=== PATIENT | male | born 1955 | race Hispanic/Latino ===

== ENCOUNTER 2017-05-23 14:39 | Outpatient (CLI) | payer OTHER ==
--- NOTE | 2017-05-23 15:04 | RAD ---
CERVICAL SPINE RADIOGRAPHS 3 VIEWS: Date: 05/23/17 CLINICAL HISTORY: Neck pain. FINDINGS: There is mild retrolisthesis of C3 on C4. Grade I spondylolisthesis of C4 on C5 present. There is rev ersal of normal cervical lordosis. Mild to moderate multilevel degenerative change of the cervical sp ine present. The dense is partially obscured by overlying skull base. Lateral masses of C1 are approp riately aligned. IMPRESSION: Degenerative changes of the cervical spine as above. There is no acute fracture identified, within li mitations. POS: VIANNEY
== END 2017-05-23 14:40 | disposition home or self-care (01) ==
LOC: RAD 14:39
PROVIDERS: ATTEND Specialist
DX: M50.30 Other cervical disc degeneration, unspecified cervical region (principal); M47.892 Other spondylosis, cervical region
CPT/HCPCS: 72040

== ENCOUNTER 2017-09-26 10:06 | Outpatient (CLI) | payer OTHER ==
[2017-09-26] MEDS ORDERED: Lidocaine 1% PF 10 ML AMP ONE (10:25)
[2017-09-26] MEDS ORDERED: EPINEPHrine 1 MG/ML AMP ONE (10:25)
[2017-09-26] MEDS ORDERED: Gadobenate Dimeglumine 529 MG/1 ML (20ML VIAL) ONE (10:25)
[2017-09-26] MEDS ORDERED: Iopamidol 300 61% 50 ML VIAL FS ONE (10:25)
--- NOTE | 2017-09-26 14:21 | RAD ---
FLUOROSCOPIC GUIDED RIGHT SHOULDER ATHROGRAM: Date: 09-26-17 History: Rotator cuff tear. Right shoulder pain. Fluoroscopy: Total fluoroscopy time is 0.8 minutes with total dose of 2.811 mGy*cm^2. Technique: Procedure, including risks and complications were explained to the patient and informed consent was o btained. The patient was placed on the fluoroscopy table in supine position. The right shoulder was p laced in external rotation. An area overlying the superior aspect of the right glenohumeral joint was marked and then meticulousl y prepped and draped in the usual sterile fashion. Skin and subcutaneous tissues were infiltrated wit h buffered 1% Lidocaine for local anesthesia. Utilizing fluoroscopic guidance, a 22 gauge spinal needle was advanced into the right glenohumeral héctor int. Inter stylet was removed and a small amount of contrast was injected to confirm placement in the right glenohumeral joint. As a result approximately 4 mm of a mixture consisting of MultiHance, omni paque 300, Lidocaine, and a small amount of epinephrine was instilled into the right glenohumeral angelic nt. Needle was removed and hemostasis was achieved with direct pressure and dry sterile dressing was placed. Patient tolerated the procedure well and without immediate complication. Patient was transpor mikala to MRI for further imaging. IMPRESSION: 1. Technically successful right shoulder arthrogram. Refer to MRI right shoulder report for further d etails. 2. Three views of the right shoulder demonstrate right acromioclavicular joint osteoarthritis. No acu te osseous abnormality is seen. POS: ARTUR
--- NOTE | 2017-09-26 15:08 | MRI ---
RIGHT SHOULDER MRI POST ARTHROGRAM CONTRAST: History: 61-year-old male with history of right shoulder pain and rotator cuff tear. Technique: Multiplanar, multisequence MR examination of the right shoulder is performed. FINDINGS: There is full thickness minimally retracted tear of the supraspinatus tendon which is considerably at tenuated with a component of high grade partial thickness under surface tearing back to the level of the rotator cable as well as some associated delamination of the supraspinatus and infraspinatus tend ons. Fluid and contrast extends into the subacromial subdeltoid bursa. There are AC joint arthrosis c hanges with some undersurface osteophytic change of the distal clavicle as well as some down sloping of the lateral acromion. Subscapularis and biceps tendons appear intact. There is evidence of a nancy l tear involving the posterior superior labrum. Examination is limited because of fairly extensive mo tion artifact. IMPRESSION: Rotator cuff tears including the supraspinatus and infraspinatus tendons. Mild muscle volume loss of the supraspinatus muscle. Irregular poorly defined posterior superior labrum, evidence for a tear of the posterior superior labrum. POS: VIANNEY
== END 2017-09-26 10:07 | disposition home or self-care (01) ==
LOC: RAD 10:06
PROVIDERS: ATTEND Orthopaedic Surgery
DX: M75.101 Unspecified rotator cuff tear or rupture of right shoulder, not specified as traumatic (principal); M19.011 Primary osteoarthritis, right shoulder
CPT/HCPCS: 23350; A9579; J0171; J7050

== ENCOUNTER 2017-11-13 14:07 | Outpatient (CLI) | payer OTHER ==
[2017-11-13 15:06] LABS: Anion Gap 13 mmol/L (10-20); BUN (Urea Nitrogen) 17 mg/dL (8.4-25.7); Calc. Creatinine Clearance 0 mL/min (70-130); Calcium 9.3 mg/dL (7.8-10.44); Carbon Dioxide 21 mmol/L (23-31); Chloride 106 mmol/L (98-107); Estimated GFR-MDRD 79; Glucose 111 mg/dL (80-115); Potassium 3.8 mmol/L (3.5-5.1); Sodium 136 mmol/L (136-145)
[2017-11-13 15:07] LABS: Eosinophils 2 % (0-10); Lymphocytes 70 % (21-51); MDiff Complete? YES; Mean Corpuscular HGB CONC 34.3 g/dL (32.0-36.0); Mean Corpuscular Hemoglobin 31.5 pg (27.0-31.0); Mean Corpuscular Volume 91.7 fL (78.0-98.0); Mean Platelet Volume 6.5 fL (7.4-10.4); Monocytes 3 % (0-10); Neutrophil 25 % (42-75); PLT Morphology Comment Appears Adequate; Platelet Count 249 thou/uL (130-400); RBC Distribution Width 12.7 % (11.5-14.5); Red Blood Cell (RBC) Count 4.44 mill/uL (4.70-6.10); White Blood Cell (WBC) Count 7.6 thou/uL (4.8-10.8)
--- NOTE | 2017-11-14 15:23 | EKG ---
Test Reason : Blood Pressure : / mmHG Vent. Rate : 064 BPM Atrial Rate : 064 BPM P-R Int : 138 ms QRS Dur : 076 ms QT Int : 414 ms P-R-T Axes : 032 053 026 degrees QTc Int : 427 ms Normal sinus rhythm Normal ECG Confirmed by CARLEY ANTONIO ([id number]) on 11/14/2017 3:23:23 PM Referred By: IERO Confirmed By:CARLEY ANTONIO
== END 2017-11-13 14:08 | disposition home or self-care (01) ==
LOC: LABBT 14:07
PROVIDERS: ATTEND Orthopaedic Surgery
DX: Z01.818 Encounter for other preprocedural examination (principal); M75.101 Unspecified rotator cuff tear or rupture of right shoulder, not specified as traumatic
CPT/HCPCS: 80048; 85025; 93005; 93010

== ENCOUNTER 2017-11-16 10:33 | Day surgery (SDC) | payer OTHER ==
[2017-11-13 14:38] VITALS: BMI 24.9
[2017-11-16] MEDS ORDERED: Midazolam HCl 2 mg/2 ml Vial ONE (10:54)
[2017-11-16] MEDS ORDERED: Fentanyl 100 MCG/2 ML VIAL ONE (10:54)
[2017-11-16] MEDS ORDERED: CEFAZOLIN/Water 2 GM/20 ML SYRINGE ONE (10:57)
[2017-11-16] MEDS ORDERED: Bupivacaine HCl 0.25%/Epi 0.0005/PF 10 ML VIAL FS ONE (11:14)
[2017-11-16] MEDS ORDERED: traMADol HCl 50 MG TAB PO PRN ×2 (11:58)
[2017-11-16] MEDS ORDERED: HYDROcodone/Acetaminophen 5/325 mg Tablet PO PRN ×2 (11:58)
[2017-11-16] MEDS ORDERED: Promethazine HCl 25 MG/ML VIAL IM PRN (11:58)
[2017-11-16] MEDS ORDERED: Ondansetron HCl/PF 4 MG/2 ML Vial IVP PRN (11:58)
[2017-11-16] MEDS ORDERED: Ropivacaine HCl/PF 1,100 MG in Sodium Chloride 0.9% 440 ML NERVE BLCK SCH (11:58)
[2017-11-16] MEDS ORDERED: Zolpidem Tartrate 5 MG TAB PO PRN (11:58)
[2017-11-16] MEDS ORDERED: Fentanyl 100 MCG/2 ML VIAL IV PRN (11:59)
[2017-11-16] MEDS ORDERED: Promethazine HCl 25 MG/ML VIAL ONE (15:18)
--- NOTE | 2017-11-17 10:05 | OP ---
DATE OF PROCEDURE: 11/16/2017 PREOPERATIVE DIAGNOSES: Right shoulder impingement, rotator cuff tear, biceps tendon tear, and some acromioclavicular joint arthritis. POSTOPERATIVE DIAGNOSES: Right shoulder impingement, rotator cuff tear, biceps tendon tear, and some acromioclavicular joint arthritis. PROCEDURES PERFORMED: 1. Right shoulder arthroscopy with subacromial decompression. 2. Arthroscopic rotator cuff repair. 3. Open biceps tenodesis. 4. Open distal clavicle excision. SURGEON: Melvin Cosme M.D. ASSISTANT STORE LEADER: Ruben Ash PA-C. BLOOD LOSS: Approximately 50 mL. COMPLICATIONS: None. ANESTHESIA: He had general anesthetic. He also had a preoperative block. IMPLANTS: To the right shoulder included a triple-loaded titanium anchor. We also used a BioComposi te 4.75 mm SwiveLock and a 7 x 23 BioComposite Bio-Tenodesis screw. These were all Arthrex devices. COMPLICATIONS: There were no complications. INDICATIONS: Ant is very active right-hand dominant 61-year-old male, who works at the hospital in the operating room. He has failed nonoperative treatment for his right shoulder rotator cuff tear, a nd at this time, opted to have surgery. DESCRIPTION OF PROCEDURE: After all appropriate consent forms were explained and signed, he was take n back to the operating room and at this time was given general anesthetic. He was rolled into the l eft lateral decubitus position with all bony prominences well-padded. An Exparel was placed beneath the left axilla. The right arm was taken through full range of motion. Irizarry bag was inflated to hol d him in this position and all bony prominences were protected. The right arm was then hung up with 15 pounds of traction in standard fashion. The right shoulder and upper extremity were then prepped and draped in the standard surgical fashion. Bony anatomic landmarks were drawn out and the subacrom ial space was infiltrated with Marcaine with epinephrine. Posterior portal was established and the s cope was placed into the shoulder joint. Anterior working portal was then made using a needle locali zation technique. Diagnostic arthroscopy commenced in the glenohumeral joint. The articular surface of the humeral head and glenoid were in excellent condition. The axillary pouch was evaluated. No loose bodies were noted. Labrum was intact throughout except for the superior labrum and the biceps tendon itself was found to have some tendon tears, just before it exited out the shoulder joint. Sub scapularis was intact. Rotator cuff tear was noted and debrided from this undersurface area. At thi s time, a green cannula was placed anteriorly and 18-gauge needle was used to place the suture down t hrough the biceps tendon itself. Scissors were used to remove the tendon from superior labral insert ion. Shaver was used to debride this area. At this time, we removed our scope and replaced it into the subacromial space. Lateral working portal was made and the shaver was used to remove the bursa f rom off the underlying cuff. Rotator cuff tear was debrided back to good tissue. This left us with essentially a near full thickness full width supraspinatus tear. The subacromial decompression was p erformed using the surface energy, shaver, and tanner in standard fashion. The AC joint was found to b e significantly eroded on its undersurface with a large spur and it was decided at this point that we needed to remove the end of the clavicle as well. At this time, we went about repairing our cuff by placing a passport cannula laterally. Through a separate stab incision, our triple-loaded anchor wa s placed just off the articular surface. We then ran the sutures in mattress fashion through the cuf f tear and the rotator cable using the scorpion device. These 3 sets of sutures were then tied and a ll 3 sets were taken down laterally to a 4.75 BioComposite Bio-Tenodesis screw. This gives an excell ent double row fixation with nice compression of the cuff tissue against the tuberosity. At this guillermo e, we removed the scope and drained the shoulder. We started off performing our distal clavicle exci gretta. Oblique incision was made with a 15-blade down through the skin. Bovie was used to coagulate any brisk venous bleeding. A Bovie was then used to periosteally dissect out the distal clavicle, an d Hohmann retractors were placed anterior and posterior. A saw was used to remove approximately 1 cm of the distal clavicle. These edges were smoothed off with a rasp and a small amount of bone wax wa s placed on the bleeding cancellous bone. The joint was cleaned out with a rongeur. At this time, w e thoroughly irrigated and dried. We used multiple Vicryls to close our periosteal sleeve and 2-0 Vi cryl to close subcutaneous tissue. We then turned our attention to the biceps tendon. Again, a 15-b lade was used to incise down through skin. Bovie was used to coagulate any brisk venous bleeding. D eltoid fascia was opened sharply and a finger was used to dissect in line with the deltoid fibers to get down to underlying transverse humeral ligament. This was opened up in its entirety to evaluate t he bicipital groove. All brisk bleeding was coagulated, and at this time, FiberLoop was used to sew our tendon and the intra-articular portion was removed sharply. We then placed our pin, reamed with a 7-mm reamer to a depth of 25 and placed our 7 x 23 BioComposite Bio-Tenodesis screw. Sutures were tied over top of this. We then thoroughly irrigated and dried our wound. We allowed our deltoid to close upon itself. Deltoid fascia was closed with a running Vicryl, 2-0 Vicryl, and nylon sutures we re used to close this incision as well as remaining incision and all of our portals. Bulky sterile d ressing was applied. The patient was then awakened. He was taken to the recovery room in stable con dition. All counts were correct at the end of case, and he did receive preoperative IV antibiotics.
== END 2017-11-16 19:00 | disposition home or self-care (01) ==
LOC: SDC 10:33
PROVIDERS: ATTEND Orthopaedic Surgery
PROC: 0PB90ZZ Excision of Right Clavicle, Open Approach (ICD-10-PCS; principal; 2017-11-16)
PROC: 0LM14ZZ Reattachment of Right Shoulder Tendon, Percutaneous Endoscopic Approach (ICD-10-PCS; principal; 2017-11-16)
PROC: 0LS10ZZ Reposition Right Shoulder Tendon, Open Approach (ICD-10-PCS; principal; 2017-11-16)
PROC: 0RNJ4ZZ Release Right Shoulder Joint, Percutaneous Endoscopic Approach (ICD-10-PCS; principal; 2017-11-16)
PROC: 0RHJ44Z Insertion of Internal Fixation Device into Right Shoulder Joint, Percutaneous Endoscopic Approach (ICD-10-PCS; principal; 2017-11-16)
DX: M75.111 Incomplete rotator cuff tear or rupture of right shoulder, not specified as traumatic (principal); S46.111A Strain of muscle, fascia and tendon of long head of biceps, right arm, initial encounter; M75.41 Impingement syndrome of right shoulder; M19.011 Primary osteoarthritis, right shoulder
CPT/HCPCS: C1713; J0131; J2250; J2550; J3010; J7050

== ENCOUNTER 2023-03-26 10:09 | Outpatient (CLI) | payer OTHER | END 2023-03-26 10:10 | disposition home or self-care (01) | LOC: RAD 10:09 | PROVIDERS: ATTEND Internal Medicine | DX: R06.00 Dyspnea, unspecified (principal); J98.4 Other disorders of lung | CPT/HCPCS: 71046 ==

== ENCOUNTER 2023-04-06 09:42 | Outpatient (CLI) | payer OTHER | END 2023-04-06 09:43 | disposition home or self-care (01) | LOC: BICCT 09:42 | PROVIDERS: ATTEND Internal Medicine | DX: R05.3 Chronic cough (principal) | CPT/HCPCS: 71250 ==